=== PATIENT | male | born 1935 | race Caucasian/White ===

== ENCOUNTER 2016-11-20 13:11 | Emergency (ER) | payer OTHER, BC ==
[~2016-11-20] VITALS: Ht 182.9 cm; Wt 93.9 kg
[~2016-11-20 13:11] MED LIST: ALTACE5 MG PO; AMARYL4 MG PO; APIDRA SOL100 UNIT/1 SC; FLEXERIL5 MG PO; GLUCOPHAGE850 MG PO; KEPPRA500 MG PO; LANTUS 3 M100 UNITS1 SC; LOW DOSE ASPIRI81 M1 PO; TRAZODONE HCL50 MG PO; ZOLOFT50 MG PO
[2016-11-20] MEDS ORDERED: NEURONTIN300 MG PO (13:57)
[2016-11-20] MEDS ORDERED: DOCUSATE SODIU100 MG PO (13:58)
[2016-11-20] MEDS ORDERED: POLYETHYLENE GL17 GM PO (14:00)
[2016-11-20] MEDS ORDERED: LISINOPRIL10 MG PO (14:00)
[2016-11-20 16:11] VITALS: BP 169/91
== END 2016-11-20 16:14 | disposition home or self-care (01) ==
LOC: EME → EDBD 13:11 → EME 13:11
DX: S00.93XA Contusion of unspecified part of head, initial encounter (principal); W01.198A Fall on same level from slipping, tripping and stumbling with subsequent striking against other object, initial encounter; E11.9 Type 2 diabetes mellitus without complications; Z79.4 Long term (current) use of insulin; R56.9 Unspecified convulsions; Z79.84 Long term (current) use of oral hypoglycemic drugs; Z85.07 Personal history of malignant neoplasm of pancreas; Z87.891 Personal history of nicotine dependence
CPT/HCPCS: 70450; 99281; 99284

== ENCOUNTER 2017-05-25 20:28 | Emergency (ER) | payer OTHER, BC ==
[~2017-05-25] VITALS: Ht 182.9 cm; Wt 92.5 kg
[~2017-05-25 20:28] MED LIST changes: +DOCUSATE SODIU100 MG PO; +LISINOPRIL40 MG PO; +NEURONTIN300 MG PO; +POLYETHYLENE GL17 GM PO; +ZOLOFT100 MG PO; -ZOLOFT50 MG PO
[2017-05-25 21:36] LABS: HEMATOCRIT 43.3 % (38.0-50.0); MCH 27.9 PG (29.0-34.0); MCHC 32.3 G/DL (30.0-36.0); MCV 86.4 FL (86-99); MEAN PLAT.VOLUME 9.8 uM^3 (9.0-12.4); PLATELET COUNT 419 K/uL (156-360); RBC DIS.WIDTH-CV 13.2 % (11.8-14.6); RBC DIS.WIDTH-SD 41.5 % (39-53); RED BLOOD COUNT 5.01 M/uL (4.00-5.50); WHITE BLOOD COUNT 21.3 K/uL (4.1-10.2)
[2017-05-25 21:41] LABS: CARBON DIOXIDE (BICARBONATE) 32.5 MEQ/L (20-31)
[2017-05-25 21:45] LABS: CHLORIDE 97 mEq/L (99-109); POTASSIUM 4.2 mEq/L (3.7-5.4); SODIUM 136 mEq/L (136-147)
[2017-05-25 21:46] LABS: GLUCOSE 277 mg/dL (70-99)
[2017-05-25 21:48] LABS: ANION GAP 14 MEQ/L (2-14)
[2017-05-25 21:50] LABS: GFR ESTIMATE (CALCULATED) 57 mL/min/
[2017-05-25 21:51] LABS: UREA NITROGEN (BUN) 19 mg/dL (9-23)
[2017-05-25 21:58] LABS: TROP-I INTERPRETATION NEGATIVE; TROPONIN-I 0.03 ng/mL (0.0-0.30)
[2017-05-25] MEDS ORDERED: HUMALOG100 UNIT/1 SC (23:51)
[2017-05-25] MEDS ORDERED: CLARITIN,ALAVAR10 MG PO (23:52)
[2017-05-25] MEDS ORDERED: KETOCONAZOLE60 GM TP (23:54)
[2017-05-25] MEDS ORDERED: ATIVAN0.5 MG PO (23:55)
[2017-05-25] MEDS ORDERED: TUSSIN CHE100 MG/5 M PO (23:55)
[2017-05-26 01:06] VITALS: BP 82/47
[2017-05-26] MEDS ORDERED: TYLENOL REGULA325 MG PO (16:51)
== END 2017-05-26 01:11 | disposition home or self-care (01) ==
LOC: EME → EDBD 20:28 → EME 05-26 01:11
PROVIDERS: Emergency Medicine
DX: J18.9 Pneumonia, unspecified organism (principal); R09.02 Hypoxemia; E11.9 Type 2 diabetes mellitus without complications; Z79.4 Long term (current) use of insulin; F03.90 Unspecified dementia, unspecified severity, without behavioral disturbance, psychotic disturbance, mood disturbance, and anxiety; Z85.07 Personal history of malignant neoplasm of pancreas; Z87.891 Personal history of nicotine dependence; Z66 Do not resuscitate; Z51.5 Encounter for palliative care
CPT/HCPCS: 71010; 80048; 81003; 82803; 83605; 83880; 84484; 85027; 87040; 87086; 94640; 94799; 99281; 99285

== ENCOUNTER 2017-05-26 14:56 | Emergency (ER) | payer OTHER, BC ==
[~2017-05-26] VITALS: Ht 182.9 cm; Wt 93.4 kg
[~2017-05-26 14:56] MED LIST changes: +ATIVAN0.5 MG PO; +CLARITIN,ALAVAR10 MG PO; +HUMALOG100 UNIT/1 SC; +KETOCONAZOLE60 GM TP; +TUSSIN CHE100 MG/5 M PO
[2017-05-26] MEDS ORDERED: TYLENOL REGULA325 MG PO (16:51)
[2017-05-26 17:00] VITALS: BP 144/75
== END 2017-05-26 17:00 | disposition home or self-care (01) ==
LOC: EME 14:56
DX: R50.9 Fever, unspecified (principal); J18.9 Pneumonia, unspecified organism; F03.90 Unspecified dementia, unspecified severity, without behavioral disturbance, psychotic disturbance, mood disturbance, and anxiety; E11.9 Type 2 diabetes mellitus without complications; Z79.4 Long term (current) use of insulin; Z85.07 Personal history of malignant neoplasm of pancreas; Z79.82 Long term (current) use of aspirin; Z87.891 Personal history of nicotine dependence
CPT/HCPCS: 99281; 99284